=== PATIENT | female | born 1945 | race Caucasian/White ===

== ENCOUNTER → 2016-10-23 | Day surgery (SDC) | payer MEDICARE, OTHER, SELFPAY ==
--- NOTE | 2016-10-18 15:38 | Pre-Procedure Note/Attestation ---
Pre-Procedure Note/Attestation Complete Prior to Procedure Planned Procedure: right Procedure Narrative: 1. CATARACT EXTRACTION WITH PHACO AND PC IOL IMPLANTATION, RIGHT EYE. Indications for Procedure Pre-Operative Diagnosis: 1. CATARACT ,RIGHT EYE. Attestation I attest that I discussed the nature of the procedure; its benefits; risks and complications; and alternatives (and the risks and benefits of such alternatives ), prior to the procedure, with the patient (or the patient's legal front desk representative). I attest that, if there was a reasonable possibility of needing a blood transfusion, the patient (or the patient's legal front desk representative) was given the [facility] standardized written summary, pursuant to the Prasad Munster Blood Safety Act ([place] Health and Safety Code # 1645, as amended). I attest that I re-evaluated the patient just prior to the surgery and that there has been no change in the patient's H&P, except as documented below: LAVONNE BATES Oct 18, 2016 15:38
[~2016-10-23] VITALS: Ht 162.6 cm; Wt 63.5 kg
[2016-10-23] VITALS (10 sets, daily range): BP systolic 98–127; BP diastolic 63–78
[~2016-10-23] MED LIST: Acetylcholine Injection (OR) ONE; Akten 3.5% 1ml Btl ONE; BSS 15ml BTL ONE; BSS 500ml btl ONE; CALCIUM500 M2 PO; Carbachol 0.01% Op Soln 1.5ml vial ONE; Dexamethasone 4mg/ml vial ONE; Diclofenac Sod 0.1% Op Soln ONE; DiphenhydrAMINE 50mg/ml Inj IVP PRN; DiphenhydrAMINE 50mg/ml Inj ONE; EMERGEN-C 1,01000 MG PO; EPINEPHrine 1mg/1ml Amp ONE; Gatifloxacin Opth Solution 0.5% ONE; LR 1000ml 1,000 ML IVLG SCH; LR 1000ml ONE; Labetalol 5mg/ml 20ml vial IV PRN; Lidocaine 1% MPF 10mg/ml 5ml ONE; Maxitrol Opth Oint 3.5gm ONE; NKM; Phenylephrine 10% Opth Soln 5ml ONE; Povidone-Iodine 5% opth solution ONE; Sodium Hyaluronate 10 mg/ml 0.85ml ONE; Tetracaine 0.5% Opth Soln ONE; Tropicamide 1% Opth Soln ONE; acetaZOLAMIDE 125mg tab ORAL ONE; fentaNYL 100 mcg/2 mL IV ONE
[2016-10-23] MEDS: Phenylephrine 10% Opth Soln 5ml RIGHT EYE SCH ×3 (06:54→07:09)
[2016-10-23] MEDS: Diclofenac Sod 0.1% Op Soln RIGHT EYE SCH ×3 (06:55→07:09)
[2016-10-23] MEDS: Akten 3.5% 1ml Btl RIGHT EYE SCH ×3 (06:55→07:08)
[2016-10-23] MEDS: Tropicamide 1% Opth Soln RIGHT EYE SCH ×3 (06:55→07:09)
[2016-10-23] MEDS: Gatifloxacin Opth Solution 0.5% RIGHT EYE SCH ×3 (06:56→07:09)
--- NOTE | 2016-10-23 07:12 | Anethesia Preoperative Eval ---
Anesthesia Pre-op PMH/ROS General Date of Evaluation: Oct 23, 2016 Anesthesiologist: Oli ASA Score: ASA 2 Mallampati Score Class I : Soft palate, uvula, fauces, pillars visible Class II: Soft palate, uvula, fauces visible Class III: Soft palate, base of uvula visible Class IV: Only hard plate visible Mallampati Classification: Class II Surgeon: Lorrie Diagnosis: Right cataract Surgical Procedure: Right cataract extraction with IOL Anesthesia History: none Family History: no anesthesia problems Allergies: Coded Allergies: No Known Allergies (Unverified , 10/11/16) Medications: see eMAR Past Medical History Cardiovascular: Denies: CAD, HTN, VA, arrhythmia, other, valve dz Pulmonary: Denies: COPD, ULISES, asthma, other Gastrointestinal/Genitourinary: Reports: GERD, Denies: CRI, ESRD, other Neurologic/Psychiatric: Reports: depression/anxiety, Denies: CVA, TIA, dementia, other Endocrine: Denies: DM, hypothyroidism, other, steroids HEENT: Denies: KIANA (L), KIANA (R), cataract (L), cataract (R), glaucoma, other Hematology/Immune: Denies: DVT, anemia, bleeding disorder, other Musculoskeletal/Integumentary: Reports: OA, Denies: DDD, DJD, RA, edema, other PSxH Narrative: left cataract Anesthesia Pre-op Phys. Exam Physician Exam Last Vital Signs Date Time Temp Pulse Resp B/P Pulse Ox O2 Delivery O2 Flow Rate FiO2 10/23/16 06:57 97.2 70 20 112/68 98 Room Air Constitutional: NAD Cardiovascular: RRR Respiratory: CTA Airway Exam Mallampati Score: Class II MO: full ROM: full Anesthesia Pre-op A/P Labs see chart Studies Pre-op Studies: EKG - sr Risk Assessment & Plan Assessment: ASA II Plan: MAC Status Change Before Surgery: No Pre-Antibiotics Drug: N/A LING BENITEZ M.D. Oct 23, 2016 07:11
--- NOTE | 2016-10-23 07:13 | Immediate Post-Op Evaluation ---
Immediate Post-Op Evalulation Immediate Post-Op Evalulation Procedure: Right cataract extraction with IOL Date of Evaluation: Oct 23, 2016 Time of Evaluation: 08:51 IV Fluids: 200 Blood Products: 0 Estimated Blood Loss: 0 Urinary Output: 0 Blood Pressure Systolic: 127 Blood Pressure Diastolic: 78 Pulse Rate: 79 Respiratory Rate: 16 O2 Sat by Pulse Oximetry: 100 Temperature (Fahrenheit): 98.7 Pain Score (1-10): 0 Nausea: No Vomiting: No Complications 0 Patient Status: awake, reacts, patent, none Hydration Status: adequate Drug: N/A LING BENITEZ M.D. Oct 23, 2016 07:13
--- NOTE | 2016-10-23 07:14 | 48 Hour Post Anesthesia Eval ---
Post Anesthesia Evaluation Procedure: Right cataract extraction with IOL Date of Evaluation: Oct 23, 2016 Blood Pressure Systolic: 121 0: 82 Pulse Rate: 72 Respiratory Rate: 16 O2 Sat by Pulse Oximetry: 100 Airway: patent Nausea: No Vomiting: No Pain Intensity: 0 Hydration Status: adequate Cardiopulmonary Status: at baseline Mental Status/LOC: patient returned to baseline Post-Anesthesia Complications: 0 Follow-up care needed: ready to discharge LING BENITEZ M.D. Oct 23, 2016 07:14
--- NOTE | 2016-10-23 08:52 | Brief Operative Note ---
Immediate Post Operative Note Operative Note Chief Complaint: Blurry vision, right eye, difficulty driving and reading, rightv eye Pre-op Diagnosis: 1. CATARACT ,RIGHT EYE. Procedure: Cataract extraction with phaco and PC IOL implantation, right eye Post-op Diagnosis: same as pre-op Surgeon: Lavonne Andrew MD. Treating Machine Operator: None Additional Surgeons: None Anesthesiologist: Dr. Brown Anesthesia: MAC Specimen: none Complications: none Condition: stable Estimated Blood Loss: none Drains: none Implant(s) used?: Yes - Multifocal [id number] SN [id number] was implanted in the right eye without complication LAVONNE ANDREW Oct 23, 2016 08:52
--- NOTE | 2016-10-23 19:48 | Operative Note - Dictated ---
DATE OF OPERATION: 10/23/2016 FACILITY: [facility]. SURGEON: Rashel Andrew M.D. ORDNANCE TECHNICIAN: None. ANESTHESIOLOGIST: Dr. Matos. ANESTHESIA: Monitored anesthesia care (MAC). PREOPERATIVE DIAGNOSIS: Cataract in the right eye. POSTOPERATIVE DIAGNOSIS: Cataract in the right eye. SURGERY PERFORMED: Cataract extraction with phacoemulsification and posterior chamber intraocular lens implantation in the right eye. INDICATION FOR SURGERY: The patient is a 71-year-old lady with history of osteoarthritis and gastroesophageal reflux disease. She is taking Nexium 40 mg daily with Fosamax 70 mg a day for osteopenia. She is not allergic to any medications. She is complaining of blurred vision in the right eye. She has had cataract surgery in left eye last week and and she is very happy with the result. On examination of the right eye, the cornea is clear. Anterior chamber is clean and quiet. Pupillary reflex is normal. There is 5+ nuclear sclerosis and 2+ cortical cataract in the right eye. Funduscopy shows normal optic disc, normal macula, and periphery retina is flat. There is no RAPD. To improve her vision in the right eye, the cataract has to be removed and posterior chamber intraocular lens has to be implanted. INFORMED CONSENT: The nature of the surgery, risks, benefits, alternatives and potential complications were explained all in detail to the patient in her language Farsi and therefore the potential complications including, but not limited to bleeding, infection, posterior capsular rupture, lens subluxation, flat anterior chamber, iris prolapse, uveitis, corneal edema, macular edema, endophthalmitis, retinal detachment, loss of vision, and even loss of the eye were all explained in detail to the patient. The patient voiced understanding and accepted all the complications. The alternatives including accommodating lenses, multifocal lenses, toric lens, and conventional cataract surgery with limbal relaxing incision for treatment of astigmatism were all explained in detail to the patient, who voiced understanding. The patient elected to have conventional cataract surgery with insertion of a multifocal lens in the right eye. Then she signed the consent form, which is in the chart. DESCRIPTION OF SURGERY AND FINDINGS: Following that, the patient was taken to the operation room in a stable condition. Lidocaine gel Akten 3.5% were applied to the conjunctiva of the right eye. Anesthesia was given by the anesthesiologist, Dr. Matos. After adequate anesthesia and sedation had been achieved, the right eye was prepped and draped in sterile fashion for intraocular surgery. Following that, a speculum was placed in the right eye. Following that, using a Super Sharp knife, a clear corneal side port was created. A 1% lidocaine without preservative ( ). Following that, viscoelastic agent, Healon was injected into the anterior chamber. Following that, using 2.8 mm keratome, a clear corneal temporal keratotomy was performed. Viscoelastic agent, Healon was injected into the anterior chamber again. Following that, Vision blue was injected under the viscoelastic agent to stain the anterior capsule. Following that, a clear and fresh viscoelastic agent, Healon was injected again. Under the viscoelastic agent, the anterior capsulotomy was performed in the fashion of capsulorrhexis beautifully. Following that, the whole viscoelastic agent was removed from the anterior chamber. Hydrodissection and hydrodelineation was performed using a balanced salt solution and the nucleus was freed. Following that, viscoelastic agent was injected into the anterior chamber again to protect the endothelium of the cornea. Following that, using the phacoemulsification machine in the fashion of horizontal chop, the nucleus was removed in toto. Following that, using irrigation aspiration unit, the cortical material was removed from the capsular bag and the capsular bag was polished. Following that, capsular bag was filled with viscoelastic agent, Healon. Following that, +22.5 diopter ZLB00 foldable PC IOL with serial [id number] was injected into the capsular bag. Using a Sinskey hook, the lens was manipulated and put in the proper position. Following that, viscoelastic agent was removed from the anterior and posterior part of the lens and anterior chamber was filled with balanced salt solution. Following that, the wound was hydrated with balanced salt solution. The wound was checked for leakage, the main wound was leaking therefore 10-0 Nylon stitch was placed on that area. The stitch was cleansed and was buried into the corneal tissue. Following that, Vigamox eye drops were applied to the conjunctiva of the right eye. The patient tolerated the surgery without complications. At the end of the surgery, the eye was patched with a clear sterile fenestrated shield. Following that, the patient was transferred to the recovery room. In the recovery room, 125 mg Diamox was given by mouth stat. Postoperative orders and directions were given to the patient. The patient will be discharged home upon stabilization. The patient will be followed in my office tomorrow morning at 6:30 a.m. Rashel Andrew M.D. DR: Tara JOB#: [id number] CC:
--- NOTE | 2016-10-23 19:48 | Discharge Summary ---
DATE OF ADMISSION: 10/23/2016 DATE OF DISCHARGE: 10/23/2016 REASON FOR HOSPITALIZATION: Cataract, right eye. SURGERY PERFORMED: Cataract extraction with phacoemulsification of posterior chamber intraocular lens implantation, right eye. CONDITION IN THE HOSPITAL: The patient tolerated the procedure well without complications. DISCHARGE CONDITION: The patient was stable at discharge. DISCHARGE MEDICATIONS: 1. Vigamox one drop q.i.d., right eye. 2. Prednisolone one drop q.i.d., right eye. 3. Acular one drop q.i.d., right eye. POSTOPERATIVE ORDERS: The patient has to rest at home. No bending. No lifting. POSTOPERATIVE FOLLOWUP: The patient will be followed in the office tomorrow morning at Rashel Andrew M.D. DR: Tara JOB#: [id number] CC:
== END | disposition home or self-care (01) ==
LOC: SUR 05:54
DX: H25.11 Age-related nuclear cataract, right eye (principal); H25.011 Cortical age-related cataract, right eye; E78.5 Hyperlipidemia, unspecified; M85.80 Other specified disorders of bone density and structure, unspecified site; K21.9 Gastro-esophageal reflux disease without esophagitis; M54.9 Dorsalgia, unspecified; F32.9 Major depressive disorder, single episode, unspecified; F41.9 Anxiety disorder, unspecified; M19.90 Unspecified osteoarthritis, unspecified site
CPT/HCPCS: 66984; J0171; J1100; J1200; J3010; J7120; V2632; 94003; 94150